=== PATIENT | male | born 1990 | race Asian ===

== ENCOUNTER 2024-08-12 03:19 | Inpatient (IN) | payer OTHER ==
[~2024-08-12] VITALS: Ht 175.3 cm; Wt 84.1 kg
[2024-08-12] MEDS: LABETALOL HCL 5 MG/ML 20 ML VIAL IVP ONE (03:48)
[2024-08-12 03:50] LABS: EOSINOPHILS % (AUTO) 2.5 % (1.0-6.0); HEMOGLOBIN 14.8 g/dL (13.5-17.5); LYMPHOCYTES # (AUTO) 2.4 K/uL (1.0-4.8); LYMPHOCYTES % (AUTO) 32.6 % (22.0-44.0); MEAN CORPUSCULAR HEMOGLOBIN 29.1 pg (26.0-34.0); MEAN CORPUSCULAR HGB CONC 33.6 G/dL (31.0-37.0); MEAN CORPUSCULAR VOLUME 87 fL (80-100); MONOCYTES # (AUTO) 0.5 K/uL (0.1-1.0); MONOCYTES % (AUTO) 7.3 % (2.0-9.0); NEUTROPHILS # (AUTO) 4.1 K/uL (1.8-7.7); NEUTROPHILS % (AUTO) 56.6 % (40.0-70.0); PLATELET COUNT (AUTO) 244 K/uL (150-450); RED BLOOD CELL COUNT(AUTO) 5.09 MIL/uL (4.50-5.90); RED CELL DISTRIBUTION WIDTH 12.9 % (11.5-14.5); WHITE BLOOD COUNT (AUTO) 7.3 K/uL (4.5-11.0)
[2024-08-12] MEDS: NiCARDipine HCL 25 MG in SODIUM CHLORIDE 0.9% 240 ML IV PRN ×3 (03:51→20:00)
[2024-08-12 03:54] LABS: ANION GAP 4 mmol/L (8-16); CALCIUM, TOTAL 8.4 mg/dL (8.8-10.5); CARBON DIOXIDE 32 mmol/L (22-29); CHLORIDE 104 mmol/L (98-107); CREATININE 1.15 mg/dL (0.60-1.30); GLOMERULAR FILTR. RATE CALC > 60 mL/min (>60); GLUCOSE,RANDOM 138 mg/dL (70-110); POTASSIUM 3.2 mmol/L (3.5-5.1); SODIUM SERUM 140 mmol/L (136-145); UREA NITROGEN, BLOOD 19 mg/dL (7-18)
[2024-08-12 04:00] LABS: ALANINE AMINOTRANSFERASE 34 U/L (12-78); ALBUMIN 3.9 g/dL (3.4-5.0); ALKALINE PHOSPHATASE 74 U/L (46-116); ASPARTATE AMINOTRANSFERASE 20 U/L (15-37); BILIRUBIN,TOTAL 0.5 mg/dL (0.1-1.0); CHOL/HDL RATIO 5.2 (4.2-7.3); CHOLESTEROL 223 mg/dL (131-200); HDL CHOLESTEROL 43 mg/dL (40-60); HEMOGLOBIN A1C 5.6 % (3.8-5.6); LDL CHOL (CALC.) 150 mg/dL (0-130); TOTAL PROTEIN, SERUM 8.6 g/dL (6.4-8.2); TRIGLYCERIDES 151 mg/dL (15-150); TROPONIN I-HIGH SENSITIVITY 9 ng/L (<76)
[2024-08-12 04:01] LABS: PROTHROMBIN TIME 10.9 SEC (9.4-11.6)
[2024-08-12] MEDS: LevETIRAcetam 1,000 MG in DEXTROSE 5%-WATER 100 ML IV ONE (04:38)
[2024-08-12] MEDS ORDERED: GADOTERATE MEGLUMINE 10 MMOL/20 ML VIAL IVP ONE (06:21)
[2024-08-12] MEDS: ATORVASTATIN CALCIUM 40 MG TABLET PO SCH (08:11)
[2024-08-12] MEDS: LevETIRAcetam 500 MG TABLET PO SCH (08:11)
[2024-08-12] MEDS: LevETIRAcetam 500 MG in DEXTROSE 5%-WATER 100 ML IV SCH (09:08)
[2024-08-12 09:10] LABS: APPEARANCE,URINE CLEAR (CLEAR); BILIRUBIN,URINE NEGATIVE (NEGATIVE); COLOR,URINE COLORLESS (YELLOW); GLUCOSE, URINE (UA) NEGATIVE (NEGATIVE); KETONES,URINE NEGATIVE (NEGATIVE); LEUKOCYTE ESTERASE ,URINE NEGATIVE (NEGATIVE); NITRATE,URINE NEGATIVE (NEGATIVE); OCCULT BLOOD,URINE NEGATIVE (NEGATIVE); PROTEIN,URINE NEGATIVE (NEGATIVE); UROBILINOGEN,URINE <=1.0 mg/dL (<=1.0)
[2024-08-12 09:11] LABS: RBC,URINE None Seen /HPF (0-2)
[2024-08-12 09:12] LABS: BACTERIA,URINE None Seen /HPF (None Seen); WBC,URINE None Seen /HPF (0-5)
[2024-08-12 09:16] LABS: ALCOHOL, URINE DRUG SCREEN NEGATIVE (NEGATIVE); AMPHET/METH SCREEN,URINE NEGATIVE (NEGATIVE); BARBITURATE SCREEN, URINE NEGATIVE (NEGATIVE); BENZODIAZEPINES SCREEN,URINE NEGATIVE (NEGATIVE); CANNABINOID SCREEN,URINE NEGATIVE (NEGATIVE); COCAINE SCREEN,URINE NEGATIVE (NEGATIVE); METHADONE SCREEN, URINE NEGATIVE (NEGATIVE); OPIATE SCREEN,URINE NEGATIVE (NEGATIVE); PHENCYCLIDINE SCREEN,URINE NEGATIVE (NEGATIVE)
[2024-08-12 09:53] LABS: TROPONIN I-HIGH SENSITIVITY 12 ng/L (<76)
[2024-08-12] MEDS ORDERED: BISACODYL 10 MG RECTAL RECTAL SUPPOSITORY PR PRN (11:15)
[2024-08-12] MEDS ORDERED: ONDANSETRON HCL 4 MG/2 ML VIAL IVP PRN (11:15)
[2024-08-12] MEDS ORDERED: MORPHINE SULFATE 2 MG/ML SYRINGE IVP PRN (11:15)
[2024-08-12] MEDS ORDERED: MAGNESIUM HYDROXIDE SUSPENSION 30 ML UDCUP PO PRN (11:15)
[2024-08-12] MEDS ORDERED: HYDROCODONE/ACETAMINOPHEN 5-325 MG TABLET PO PRN (11:15)
[2024-08-12] MEDS ORDERED: ZOLPIDEM TARTRATE 5 MG TABLET PO PRN (11:15)
[2024-08-12] MEDS: POTASSIUM CHL 10 MEQ/WATER 50 ML IV PRN (12:10)
[2024-08-12] MEDS ORDERED: MORPHINE SULFATE 100 MG/NS/PF 100 ML IV PRN (13:30)
[2024-08-12 15:00] VITALS: BP 137/68; PULSE 70; RESP 16; TEMP 98.2; O2SAT 96
[2024-08-12 15:38] LABS: POTASSIUM 3.6 mmol/L (3.5-5.1); TROPONIN I-HIGH SENSITIVITY 28 ng/L (<76)
[2024-08-12 16:00] VITALS: BP 129/68; PULSE 68; PULSE 72; RESP 16; TEMP 98.2; O2SAT 98
[2024-08-12 20:00] VITALS: BP 130/70; PULSE 79; RESP 19; TEMP 98.7; O2SAT 94
[2024-08-12] MEDS: DOCUSATE SODIUM 100 MG CAPSULE PO SCH (21:00)
[2024-08-13] VITALS: BP 124/69; PULSE 77; RESP 16; TEMP 98.3; O2SAT 94
[2024-08-13 04:00] VITALS: BP 121/63; PULSE 76; RESP 17; TEMP 98.5; O2SAT 94
[2024-08-13 06:00] LABS: BASOPHILS % (AUTO) 0.8 % (0.0-2.0); EOSINOPHILS % (AUTO) 1.2 % (1.0-6.0); HEMATOCRIT 43.8 % (41-53); LYMPHOCYTES # (AUTO) 2.2 K/uL (1.0-4.8); LYMPHOCYTES % (AUTO) 29.1 % (22.0-44.0); MEAN CORPUSCULAR HEMOGLOBIN 29.4 pg (26.0-34.0); MEAN CORPUSCULAR HGB CONC 34.3 G/dL (31.0-37.0); MEAN CORPUSCULAR VOLUME 86 fL (80-100); MONOCYTES # (AUTO) 0.6 K/uL (0.1-1.0); MONOCYTES % (AUTO) 7.6 % (2.0-9.0); NEUTROPHILS # (AUTO) 4.7 K/uL (1.8-7.7); NEUTROPHILS % (AUTO) 61.3 % (40.0-70.0); PLATELET COUNT (AUTO) 265 K/uL (150-450); RED BLOOD CELL COUNT(AUTO) 5.11 MIL/uL (4.50-5.90); RED CELL DISTRIBUTION WIDTH 12.6 % (11.5-14.5); WHITE BLOOD COUNT (AUTO) 7.7 K/uL (4.5-11.0)
[2024-08-13 06:12] LABS: ANION GAP 6 mmol/L (8-16); CALCIUM, TOTAL 8.2 mg/dL (8.8-10.5); CARBON DIOXIDE 28 mmol/L (22-29); CHLORIDE 105 mmol/L (98-107); CREATININE 0.83 mg/dL (0.60-1.30); GLOMERULAR FILTR. RATE CALC > 60 mL/min (>60); GLUCOSE,RANDOM 124 mg/dL (70-110); POTASSIUM 3.2 mmol/L (3.5-5.1); SODIUM SERUM 139 mmol/L (136-145); UREA NITROGEN, BLOOD 11 mg/dL (7-18)
[2024-08-13] MEDS: PANTOPRAZOLE SODIUM 40 MG DR TABLET PO SCH (07:45)
[2024-08-13 08:00] VITALS: BP 143/77; PULSE 76; PULSE 85; RESP 16; TEMP 98.4; O2SAT 97
[2024-08-13 12:00] VITALS: BP 129/66; PULSE 77; PULSE 78; RESP 16; TEMP 98.2; O2SAT 95
[2024-08-13 16:00] VITALS: BP 138/74; PULSE 103; PULSE 87; RESP 20; TEMP 98.4; O2SAT 94
[2024-08-13 20:00] VITALS: BP 115/71; PULSE 91; RESP 19; TEMP 98.9; O2SAT 95
[2024-08-13] MEDS: ACETAMINOPHEN 325 MG TABLET PO PRN (20:43)
[2024-08-14] VITALS: BP 133/78; PULSE 90; RESP 19; TEMP 98.7; O2SAT 92
[2024-08-14 04:00] VITALS: BP 118/63; PULSE 89; RESP 18; TEMP 98.1; O2SAT 94
[2024-08-14 07:41] LABS: ANION GAP 10 mmol/L (8-16); CALCIUM, TOTAL 8.7 mg/dL (8.8-10.5); CARBON DIOXIDE 27 mmol/L (22-29); CHLORIDE 103 mmol/L (98-107); CREATININE 0.93 mg/dL (0.60-1.30); GLOMERULAR FILTR. RATE CALC > 60 mL/min (>60); GLUCOSE,RANDOM 131 mg/dL (70-110); POTASSIUM 3.3 mmol/L (3.5-5.1); SODIUM SERUM 140 mmol/L (136-145); UREA NITROGEN, BLOOD 10 mg/dL (7-18)
[2024-08-14 07:48] LABS: BASOPHILS % (AUTO) 1.1 % (0.0-2.0); EOSINOPHILS % (AUTO) 1.1 % (1.0-6.0); HEMATOCRIT 47.3 % (41-53); LYMPHOCYTES # (AUTO) 1.8 K/uL (1.0-4.8); LYMPHOCYTES % (AUTO) 23.7 % (22.0-44.0); MEAN CORPUSCULAR HEMOGLOBIN 29.3 pg (26.0-34.0); MEAN CORPUSCULAR HGB CONC 33.9 G/dL (31.0-37.0); MEAN CORPUSCULAR VOLUME 86 fL (80-100); MONOCYTES # (AUTO) 0.6 K/uL (0.1-1.0); MONOCYTES % (AUTO) 7.5 % (2.0-9.0); NEUTROPHILS % (AUTO) 66.6 % (40.0-70.0); PLATELET COUNT (AUTO) 260 K/uL (150-450); RED BLOOD CELL COUNT(AUTO) 5.47 MIL/uL (4.50-5.90); RED CELL DISTRIBUTION WIDTH 12.9 % (11.5-14.5); WHITE BLOOD COUNT (AUTO) 7.5 K/uL (4.5-11.0)
[2024-08-14 08:00] VITALS: BP 141/72; PULSE 86; RESP 19; TEMP 100; O2SAT 96
[2024-08-14] MEDS: POTASSIUM CHLORIDE 20 MEQ ER TABLET PO PRN (08:06)
[2024-08-14 12:00] VITALS: BP 143/74; PULSE 98; RESP 20; TEMP 99.3; O2SAT 98
[2024-08-14] MEDS: AmLODIPine BESYLATE 5 MG TABLET PO SCH (14:36)
[2024-08-14 16:00] VITALS: BP 138/75; PULSE 91; RESP 21; TEMP 98.4; O2SAT 97
[2024-08-14 20:00] VITALS: BP 143/71; PULSE 101; PULSE 102; RESP 18; TEMP 99.3; O2SAT 95
[2024-08-15] VITALS: BP 112/63; PULSE 84; PULSE 93; RESP 14; TEMP 99.2; O2SAT 95
== END 2024-08-15 00:45 | disposition short-term general hospital (02) | DRG 64 ==
LOC: EMS 03:19 → EDH 07:25 → ICU 16:00
PROVIDERS: ADMIT Internal Medicine; ATTEND Internal Medicine
DX: I61.0 Nontraumatic intracerebral hemorrhage in hemisphere, subcortical (principal); G93.6 Cerebral edema; G81.91 Hemiplegia, unspecified affecting right dominant side; I16.1 Hypertensive emergency; R47.01 Aphasia; E87.6 Hypokalemia; E78.5 Hyperlipidemia, unspecified; I10 Essential (primary) hypertension; Z79.899 Other long term (current) drug therapy
CPT/HCPCS: 70450; 70496; 70498; 70553; 71045; 80048; 80053; 80061; 80307; 81001; 82948; 83036; 84132; 84484; 85025; 85610; 85730; 86850; 86900; 86901; 87081; 92526; 92610; 93005; 93306; 96365; 96367; 96375; 97116; 97162; 97530; 99291; J0712; J2270; J3480; J3490; J7050; J7060; 36415-L1; 36415-TC